=== PATIENT | male | born 1945 | race Caucasian/White ===

== ENCOUNTER 2018-12-11 06:37 | Emergency (ER) | payer MEDICARE, SELFPAY ==
[2018-12-11] VITALS (10 sets, daily range): BP systolic 108–142; BP diastolic 69–84; PULSE 77–88; RESP 16–21; TEMP 36.9; O2SAT 96–99; BMI 29.0
--- NOTE | 2018-12-11 06:49 | ED.CHESTPAIN ---
HPI - Chest Pain <Rohan Morales DO - Last Filed: 12/11/18 18:29> General Chief Complaint: Chest Pain Stated Complaint: Chest pain Time Seen by Provider: 12/11/18 06:37 Source: patient and EMS Mode of arrival: EMS Limitations: no limitations History of Present Illness HPI narrative: 73-year-old male nonsmoker with history of type 2 diabetes controlled with insulin and hyperlipidemia presents with 8/10 anterior chest pressure with radiation to both arms that started this morning while at rest. It lasted less than an hour and seemed to have no associated symptoms such as nausea, vomiting, diaphoresis or shortness of breath. He states that is symptoms improved with rest. He mentions to EMS that over the past few months he has had multiple episodes of exertional chest pain and dyspnea that all seemed to have resolved with rest. He has had any significant workup as he had been busy with personal matters. He denies any recent injury, travel or history of blood clot. He denies any leg swelling, redness or pain. MD complaint: chest pain Onset (ago): minute(s) Duration: now resolved Onset: during rest Pain location: substernal Severity: moderate Severity scale (1-10): 8 Quality: aching and heaviness Pain radiation: RUE and LUE Relieving factors: rest Exacerbating factors: nothing Treatments prior to arrival chest pain: aspirin Related Data Home Medications Medication Instructions Recorded Confirmed Atorvastatin Calcium (Lipitor) 0 PO *UK DOSE/FREQUENCY #0 06/10/06 [RX FOR BLOOD PRESSUR] #0 06/10/06 Allergies Allergy/AdvReac Type Severity Reaction Status Date / Time No Known Drug Allergies Allergy Verified 12/11/18 07:18 Review of Systems <Rohan Morales DO - Last Filed: 12/11/18 18:29> Constitutional Denies chills, Denies fever(s), Denies lethargy and Denies weakness Eyes Denies change in vision, Denies eye discharge, Denies irritation and Denies loss of vision ENT Ears, Nose, Mouth, and Throat: Denies change in voice, Denies neck pain and Denies sore throat Cardiovascular Reports chest pain, Denies irregular heart rhythm, Denies lightheadedness, Denies palpitations, Denies dyspnea, Denies dyspnea on exertion and Denies orthopnea Respiratory Denies cough, Denies dyspnea, Denies dyspnea on exertion and Denies wheezing Gastrointestinal Gastrointestinal: Denies abdominal pain, Denies change in bowel habits, Denies diarrhea, Denies nausea and Denies vomiting Genitourinary Denies hematuria, Denies flank pain, Denies urinary incontinence and Denies urinary urgency Musculoskeletal Denies neck pain Integumentary/Breasts Denies pruritus, Denies erythema, Denies rash and Denies wounds Neurologic Denies confusion, Denies loss of vision and Denies weakness Psychiatric Denies anxiety, Denies confusion, Denies depression, Denies homicidal ideation and Denies suicidal ideation Endocrine Denies palpitations Hematologic/Lymphatic Denies easy bruising Allergic/Immunologic Denies wheezing PFSH <Rohan Morales DO - Last Filed: 12/11/18 18:29> Medical History Hyperlipidemia (Acute) IDDM (insulin dependent diabetes mellitus) (Acute) Social History Smoking Status: Former smoker Social History Smoking Status: Former smoker Exam <Rohan Morales DO - Last Filed: 12/11/18 18:29> Narrative Exam Narrative: GENERAL: 73-year-old male appears stated age, resting comfortably and in no active pain HEAD: Atraumatic. Normocephalic. No temporal or scalp tenderness. EYES: Pupils equal round and reactive. Extraocular motions intact. No scleral icterus. No injection or drainage. ENT: Nose without bleeding, purulent drainage or septal hematoma. Throat without erythema, tonsillar hypertrophy or exudate. Uvula midline. Airway patent. NECK: Trachea midline. No JVD or lymphadenopathy. Supple, nontender, no meningeal signs. CARDIOVASCULAR: Regular rate and rhythm without murmurs, gallops, or rubs. RESPIRATORY: Clear to auscultation. Breath sounds equal bilaterally. No wheezes, rales, or rhonchi. GASTROINTESTINAL: Abdomen soft, non-tender, nondistended. No hepato-splenomegaly, or palpable masses. No guarding. EXTREMITIES: No clubbing, cyanosis, or edema. No joint tenderness, effusion, or edema noted. BACK: Nontender without deformity or crepitance. No flank tenderness. NEURO: AOx3. SKIN: No rash or erythema. Initial Vital Signs Initial Vital Signs: Vital Signs Temperature 98.5 F 08/03/19 06:40 Pulse Rate 85 12/11/18 06:40 Respiratory Rate 16 12/11/18 06:40 Blood Pressure 142/82 H 12/11/18 06:40 Pulse Oximetry 98 12/11/18 06:40 <Jahaira Kahn DO - Last Filed: 12/11/18 12:09> Initial Vital Signs Initial Vital Signs: Vital Signs Temperature 98.5 F 12/11/18 06:40 Pulse Rate 85 12/11/18 06:40 Respiratory Rate 16 12/11/18 06:40 Blood Pressure 142/82 H 12/11/18 06:40 Pulse Oximetry 98 12/11/18 06:40 Course <Rohan Morales DO - Last Filed: 12/11/18 18:29> Orders Ordered: Discontinued Medications Heparin Sodium (Porcine) (Heparin) 5,000 unit IV NOW ONE Stop: 12/11/18 08:46 Last Admin: 12/11/18 09:03 Dose: 5,000 unit Sodium Chloride (Normal Saline 0.9%) 1,000 mls @ 150 mls/hr IV CONT AYDE Last Infusion: 12/11/18 10:17 Dose: 0 mls/hr Admin: 12/11/18 07:18 Dose: 150 mls/hr Heparin Sodium/Dextrose (Heparin Drip) 25,000 unit in 500 mls @ 20 mls/hr IV CONT YADE; Protocol Last Titration: 12/11/18 10:17 Dose: 0 units/hr, 0 mls/hr Admin: 12/11/18 09:03 Dose: 1,000 units/hr, 20 mls/hr Vital Signs - 8 hr 12/11/18 06:40 12/11/18 07:01 12/11/18 07:30 Temperature 98.5 F Pulse Rate 85 81 80 Respiratory Rate 16 18 18 Blood Pressure 142/82 H Blood Pressure [Left Arm] 115/74 123/84 Pulse Oximetry 98 96 12/11/18 07:39 12/11/18 08:00 12/11/18 09:00 Temperature Pulse Rate 79 82 79 Respiratory Rate 21 17 21 Blood Pressure Blood Pressure [Left Arm] 123/84 108/69 134/74 Pulse Oximetry 98 98 12/11/18 09:30 12/11/18 10:00 12/11/18 10:09 Temperature Pulse Rate 84 80 88 Respiratory Rate 18 20 20 Blood Pressure Blood Pressure [Left Arm] 134/74 126/80 Pulse Oximetry 98 97 99 12/11/18 10:20 Temperature Pulse Rate 77 Respiratory Rate 20 Blood Pressure 126/80 Blood Pressure [Left Arm] Pulse Oximetry 97 <Jahaira Kahn DO - Last Filed: 12/11/18 12:09> Orders Ordered: Discontinued Medications Heparin Sodium (Porcine) (Heparin) 5,000 unit IV NOW ONE Stop: 12/11/18 08:46 Last Admin: 12/11/18 09:03 Dose: 5,000 unit Sodium Chloride (Normal Saline 0.9%) 1,000 mls @ 150 mls/hr IV CONT AYDE Last Infusion: 12/11/18 10:17 Dose: 0 mls/hr Admin: 12/11/18 07:18 Dose: 150 mls/hr Heparin Sodium/Dextrose (Heparin Drip) 25,000 unit in 500 mls @ 20 mls/hr IV CONT AYDE; Protocol Last Titration: 12/11/18 10:17 Dose: 0 units/hr, 0 mls/hr Admin: 12/11/18 09:03 Dose: 1,000 units/hr, 20 mls/hr Consultations Consultation #1: Dr. Riggs, agrees patient needs further evaluation, probable cardiac catheterization. Please admit to hospitalist. Time: 08:40 Consultation #2: Dr. Pulido, hospitalist at [facility] recommend starting heparin drip. And happily accepted Time: 08:51 Vital Signs - 8 hr 12/11/18 06:40 12/11/18 07:01 12/11/18 07:30 Temperature 98.5 F Pulse Rate 85 81 80 Respiratory Rate 16 18 18 Blood Pressure 142/82 H Blood Pressure [Left Arm] 115/74 123/84 Pulse Oximetry 98 96 12/11/18 07:39 12/11/18 08:00 12/11/18 09:00 Temperature Pulse Rate 79 82 79 Respiratory Rate 21 17 21 Blood Pressure Blood Pressure [Left Arm] 123/84 108/69 134/74 Pulse Oximetry 98 98 12/11/18 09:30 12/11/18 10:00 12/11/18 10:09 Temperature Pulse Rate 84 80 88 Respiratory Rate 18 20 20 Blood Pressure Blood Pressure [Left Arm] 134/74 126/80 Pulse Oximetry 98 97 99 12/11/18 10:20 Temperature Pulse Rate 77 Respiratory Rate 20 Blood Pressure 126/80 Blood Pressure [Left Arm] Pulse Oximetry 97 MDM - Chest Pain <Rohan Morales DO - Last Filed: 12/11/18 18:29> Lab Data Result diagrams: 12/11/18 06:52 12/11/18 06:52 Lab Results 12/11/18 12/11/18 12/11/18 Range/Units 06:52 06:52 06:52 WBC 8.0 (4.5-11.0) X10^3/uL RBC 4.57 (4.5-5.9) X10^6/uL Hgb 14.4 (13.5-17.5) g/dL Hct 43.5 (41-53) % MCV 95.2 (80-100) fL MCH 31.6 (26-34) PG MCHC 33.2 (30-36) % RDW 14.2 (11.6-14.8) % Plt Count 200 (150-400) X10^3/uL Neut % (Auto) 59.0 (50-75) % Lymph % (Auto) 23.6 L (25-40) % [place] % (Auto) 9.9 (3-14) % Eos % (Auto) 6.8 H (2-4) % Baso % (Auto) 0.7 (0-2) % Neut # (Auto) 4700 (6706-9412) /uL Lymph # (Auto) 1900 (3353-8688) /uL [place] # (Auto) 800 (0-900) /uL Eos # (Auto) 500 H (0-450) /uL Baso # (Auto) 100 (0-100) /uL PT (10.1-12.7) SECONDS INR (0.9-1.3) APTT (26.4-36.2) SECONDS Sodium 140 (137-145) mmol/L Potassium 4.4 (3.4-5.1) mmol/L Chloride 104 (98-107) mmol/L Carbon Dioxide 26 (22-32) mmol/L BUN 27 H (9-20) mg/dL Creatinine 1.10 (0.66-1.25) mg/dL Estimated GFR > 60.0 (>60) mL/min BUN/Creatinine Ratio 24.5 H (6-22) Glucose 120 H (80-110) mg/dL Calcium 9.6 (8.4-10.2) mg/dL Total Bilirubin 0.9 (0.2-1.3) mg/dL AST 29 (17-59) IU/L ALT 29 (21-72) IU/L Alkaline Phosphatase 87 (38-126) U/L Total Creatine Kinase 158 (55-170) U/L CK-MB (CK-2) 2.91 H (<2.37) ng/mL CK-MB (CK-2) Rel Index 1.8 (1.5-5.0) % Troponin I 0.029 (0.01-0.034) ng/mL B-Natriuretic Peptide < 100 (<100) Total Protein 8.0 (6.3-8.2) g/dL Albumin 4.5 (3.5-5.0) g/dL Globulin 3.5 (1.7-4.1) g/dL Albumin/Globulin Ratio 1.3 (1.0-2.8) Lipase 83 (23-300) U/L 12/11/18 12/11/18 12/11/18 Range/Units 06:52 06:52 09:05 WBC (4.5-11.0) X10^3/uL RBC (4.5-5.9) X10^6/uL Hgb (13.5-17.5) g/dL Hct (41-53) % MCV (80-100) fL MCH (26-34) PG MCHC (30-36) % RDW (11.6-14.8) % Plt Count (150-400) X10^3/uL Neut % (Auto) (50-75) % Lymph % (Auto) (25-40) % [place] % (Auto) (3-14) % Eos % (Auto) (2-4) % Baso % (Auto) (0-2) % Neut # (Auto) (5051-9239) /uL Lymph # (Auto) (1830-2249) /uL [place] # (Auto) (0-900) /uL Eos # (Auto) (0-450) /uL Baso # (Auto) (0-100) /uL PT 11.8 (10.1-12.7) SECONDS INR 1.0 (0.9-1.3) APTT 26 L (26.4-36.2) SECONDS Sodium (137-145) mmol/L Potassium (3.4-5.1) mmol/L Chloride (98-107) mmol/L Carbon Dioxide (22-32) mmol/L BUN (9-20) mg/dL Creatinine (0.66-1.25) mg/dL Estimated GFR (>60) mL/min BUN/Creatinine Ratio (6-22) Glucose (80-110) mg/dL Calcium (8.4-10.2) mg/dL Total Bilirubin (0.2-1.3) mg/dL AST (17-59) IU/L ALT (21-72) IU/L Alkaline Phosphatase (38-126) U/L Total Creatine Kinase (55-170) U/L CK-MB (CK-2) (<2.37) ng/mL CK-MB (CK-2) Rel Index (1.5-5.0) % Troponin I 0.090 H (0.01-0.034) ng/mL B-Natriuretic Peptide (<100) Total Protein (6.3-8.2) g/dL Albumin (3.5-5.0) g/dL Globulin (1.7-4.1) g/dL Albumin/Globulin Ratio (1.0-2.8) Lipase (23-300) U/L Urine Dip Bedside Urine Glucose Negative Bedside Urine Bilirubin - Negative Bedside Urine Ketone - Negative Urine Specific [place] 1.015 Bedside Urine Occult Blood - Negative Bedside Urine pH 5.5 Bedside Urine Protein - Negative Bedside Urine Urobilinogen - Negative Bedside Urine Nitrite - Negative Bedside Urine Leukocytes - Negative Esterase <Jahaira Kahn, DO - Last Filed: 12/11/18 12:09> Lab Data Attestation: I reviewed the patient's lab results. Lab Results 12/11/18 12/11/18 12/11/18 Range/Units 06:52 06:52 06:52 WBC 8.0 (4.5-11.0) X10^3/uL RBC 4.57 (4.5-5.9) X10^6/uL Hgb 14.4 (13.5-17.5) g/dL Hct 43.5 (41-53) % MCV 95.2 (80-100) fL MCH 31.6 (26-34) PG MCHC 33.2 (30-36) % RDW 14.2 (11.6-14.8) % Plt Count 200 (150-400) X10^3/uL Neut % (Auto) 59.0 (50-75) % Lymph % (Auto) 23.6 L (25-40) % [place] % (Auto) 9.9 (3-14) % Eos % (Auto) 6.8 H (2-4) % Baso % (Auto) 0.7 (0-2) % Neut # (Auto) 4700 (2983-4102) /uL Lymph # (Auto) 1900 (4010-0877) /uL [place] # (Auto) 800 (0-900) /uL Eos # (Auto) 500 H (0-450) /uL Baso # (Auto) 100 (0-100) /uL PT (10.1-12.7) SECONDS INR (0.9-1.3) APTT (26.4-36.2) SECONDS Sodium 140 (137-145) mmol/L Potassium 4.4 (3.4-5.1) mmol/L Chloride 104 (98-107) mmol/L Carbon Dioxide 26 (22-32) mmol/L BUN 27 H (9-20) mg/dL Creatinine 1.10 (0.66-1.25) mg/dL Estimated GFR > 60.0 (>60) mL/min BUN/Creatinine Ratio 24.5 H (6-22) Glucose 120 H (80-110) mg/dL Calcium 9.6 (8.4-10.2) mg/dL Total Bilirubin 0.9 (0.2-1.3) mg/dL AST 29 (17-59) IU/L ALT 29 (21-72) IU/L Alkaline Phosphatase 87 (38-126) U/L Total Creatine Kinase 158 (55-170) U/L CK-MB (CK-2) 2.91 H (<2.37) ng/mL CK-MB (CK-2) Rel Index 1.8 (1.5-5.0) % Troponin I 0.029 (0.01-0.034) ng/mL B-Natriuretic Peptide < 100 (<100) Total Protein 8.0 (6.3-8.2) g/dL Albumin 4.5 (3.5-5.0) g/dL Globulin 3.5 (1.7-4.1) g/dL Albumin/Globulin Ratio 1.3 (1.0-2.8) Lipase 83 (23-300) U/L 12/11/18 12/11/18 12/11/18 Range/Units 06:52 06:52 09:05 WBC (4.5-11.0) X10^3/uL RBC (4.5-5.9) X10^6/uL Hgb (13.5-17.5) g/dL Hct (41-53) % MCV (80-100) fL MCH (26-34) PG MCHC (30-36) % RDW (11.6-14.8) % Plt Count (150-400) X10^3/uL Neut % (Auto) (50-75) % Lymph % (Auto) (25-40) % [place] % (Auto) (3-14) % Eos % (Auto) (2-4) % Baso % (Auto) (0-2) % Neut # (Auto) (5507-1849) /uL Lymph # (Auto) (5642-1209) /uL [place] # (Auto) (0-900) /uL Eos # (Auto) (0-450) /uL Baso # (Auto) (0-100) /uL PT 11.8 (10.1-12.7) SECONDS INR 1.0 (0.9-1.3) APTT 26 L (26.4-36.2) SECONDS Sodium (137-145) mmol/L Potassium (3.4-5.1) mmol/L Chloride (98-107) mmol/L Carbon Dioxide (22-32) mmol/L BUN (9-20) mg/dL Creatinine (0.66-1.25) mg/dL Estimated GFR (>60) mL/min BUN/Creatinine Ratio (6-22) Glucose (80-110) mg/dL Calcium (8.4-10.2) mg/dL Total Bilirubin (0.2-1.3) mg/dL AST (17-59) IU/L ALT (21-72) IU/L Alkaline Phosphatase (38-126) U/L Total Creatine Kinase (55-170) U/L CK-MB (CK-2) (<2.37) ng/mL CK-MB (CK-2) Rel Index (1.5-5.0) % Troponin I 0.090 H (0.01-0.034) ng/mL B-Natriuretic Peptide (<100) Total Protein (6.3-8.2) g/dL Albumin (3.5-5.0) g/dL Globulin (1.7-4.1) g/dL Albumin/Globulin Ratio (1.0-2.8) Lipase (23-300) U/L Urine Dip Bedside Urine Glucose Negative Bedside Urine Bilirubin - Negative Bedside Urine Ketone - Negative Urine Specific [place] 1.015 Bedside Urine Occult Blood - Negative Bedside Urine pH 5.5 Bedside Urine Protein - Negative Bedside Urine Urobilinogen - Negative Bedside Urine Nitrite - Negative Bedside Urine Leukocytes - Negative Esterase Imaging Data Chest x-ray: Radiologist's impression: PROCEDURE: XR CHEST 1V INDICATIONS: CP TECHNIQUE: One view of the chest was acquired. COMPARISON: [facility], , CHEST 1 VIEW, 06/10/2006, 9:54. FINDINGS: Surgical changes and devices: None. Lungs and pleura: Interstitial prominence is seen. No focal infiltrates are seen. No pleural effusions or pneumothorax. Mediastinum: Mediastinal contours appear normal. Heart size is normal. Bones and chest wall: No suspicious bony lesions. Age-appropriate bony degenerative changes are seen. Overlying soft tissues appear unremarkable. IMPRESSION: Interstitial prominence is seen throughout. The interstitial prominence is nonspecific, yet may be related to pulmonary edema. Dictated by: Neville Cesar M.D. on 12/11/2018 at 7:06 ECG Data Attestation: I personally reviewed and interpreted this ECG as follows: Prior ECG tracings: not available for review Interpretation: EKG 1. Sinus rhythm rate [address] elevations no T-wave inversions possibly slight ST depression V4 through V6 EKG 2. Sinus rhythm rate 84 P are interval 179 ST depression previously seen now seems improved MDM Narrative Medical decision making narrative: Patient signed out to me by Dr. Morales. I have seen evaluated patient myself. Resting comfortably now. He has certainly had multiple episodes of exertional dyspnea is and today it happened at rest. Currently chest pain-free. Unfortunately [facility] not able to do cardiac stress testing over the weekend, patient will need to be transferred. Patient's 2nd troponin did increase 0.029-0.09. Cut off is 0.12 for [place], significant increase in 2 hours. Patient's symptoms are certainly concerning for cardiac event. Patient is stable for transfer. Discharge Plan Departure Patient Disposition: [facility] Clinical Impression: Angina at rest Chest pain Qualifiers: Chest pain type: unspecified Qualified Code(s): R07.9 - Chest pain, unspecified Discharge Date/Time: 12/11/18 10:23 Interventions: ED Discharge Assessment Last Done: 12/11/18 10:20 Prescriptions: No Action Atorvastatin Calcium (Lipitor) PO * DOSE/FREQUENCY Qty: 0 RF: 0 [RX FOR BLOOD PRESSUR] Qty: 0 RF: 0 Referrals: Naresh Orozco MD [Primary Care Provider] -
--- NOTE | 2018-12-11 06:54 | ED_ITS ---
HPI - Chest Pain <Rohan Morales DO - Last Filed: 12/11/18 18:29> General Chief Complaint: Chest Pain Stated Complaint: Chest pain Time Seen by Provider: 12/11/18 06:37 Source: patient and EMS Mode of arrival: EMS Limitations: no limitations History of Present Illness HPI narrative: 73-year-old male nonsmoker with history of type 2 diabetes controlled with insulin and hyperlipidemia presents with 8/10 anterior chest pressure with radiation to both arms that started this morning while at rest. It lasted less than an hour and seemed to have no associated symptoms such as nausea, vomiting, diaphoresis or shortness of breath. He states that is symptoms improved with rest. He mentions to EMS that over the past few months he has had multiple episodes of exertional chest pain and dyspnea that all seemed to have resolved with rest. He has had any significant workup as he had been busy with personal matters. He denies any recent injury, travel or history of blood clot. He denies any leg swelling, redness or pain. MD complaint: chest pain Onset (ago): minute(s) Duration: now resolved Onset: during rest Pain location: substernal Severity: moderate Severity scale (1-10): 8 Quality: aching and heaviness Pain radiation: RUE and LUE Relieving factors: rest Exacerbating factors: nothing Treatments prior to arrival chest pain: aspirin Related Data Home Medications Medication Instructions Recorded Confirmed Atorvastatin Calcium (Lipitor) 0 PO *UK DOSE/FREQUENCY #0 06/10/06 [RX FOR BLOOD PRESSUR] #0 06/10/06 Allergies Allergy/AdvReac Type Severity Reaction Status Date / Time No Known Drug Allergies Allergy Verified 12/11/18 07:18 Review of Systems <Rohan Morales DO - Last Filed: 12/11/18 18:29> Constitutional Denies chills, Denies fever(s), Denies lethargy and Denies weakness Eyes Denies change in vision, Denies eye discharge, Denies irritation and Denies loss of vision ENT Ears, Nose, Mouth, and Throat: Denies change in voice, Denies neck pain and Denies sore throat Cardiovascular Reports chest pain, Denies irregular heart rhythm, Denies lightheadedness, Denies palpitations, Denies dyspnea, Denies dyspnea on exertion and Denies orthopnea Respiratory Denies cough, Denies dyspnea, Denies dyspnea on exertion and Denies wheezing Gastrointestinal Gastrointestinal: Denies abdominal pain, Denies change in bowel habits, Denies diarrhea, Denies nausea and Denies vomiting Genitourinary Denies hematuria, Denies flank pain, Denies urinary incontinence and Denies urinary urgency Musculoskeletal Denies neck pain Integumentary/Breasts Denies pruritus, Denies erythema, Denies rash and Denies wounds Neurologic Denies confusion, Denies loss of vision and Denies weakness Psychiatric Denies anxiety, Denies confusion, Denies depression, Denies homicidal ideation and Denies suicidal ideation Endocrine Denies palpitations Hematologic/Lymphatic Denies easy bruising Allergic/Immunologic Denies wheezing PFSH <Rohan Morales DO - Last Filed: 12/11/18 18:29> Medical History Hyperlipidemia (Acute) IDDM (insulin dependent diabetes mellitus) (Acute) Social History Smoking Status: Former smoker Social History Smoking Status: Former smoker Exam <Rohan Morales DO - Last Filed: 12/11/18 18:29> Narrative Exam Narrative: GENERAL: 73-year-old male appears stated age, resting comfortably and in no active pain HEAD: Atraumatic. Normocephalic. No temporal or scalp tenderness. EYES: Pupils equal round and reactive. Extraocular motions intact. No scleral icterus. No injection or drainage. ENT: Nose without bleeding, purulent drainage or septal hematoma. Throat without erythema, tonsillar hypertrophy or exudate. Uvula midline. Airway patent. NECK: Trachea midline. No JVD or lymphadenopathy. Supple, nontender, no meningeal signs. CARDIOVASCULAR: Regular rate and rhythm without murmurs, gallops, or rubs. RESPIRATORY: Clear to auscultation. Breath sounds equal bilaterally. No wheezes, rales, or rhonchi. GASTROINTESTINAL: Abdomen soft, non-tender, nondistended. No hepato- splenomegaly, or palpable masses. No guarding. EXTREMITIES: No clubbing, cyanosis, or edema. No joint tenderness, effusion, or edema noted. BACK: Nontender without deformity or crepitance. No flank tenderness. NEURO: AOx3. SKIN: No rash or erythema. Initial Vital Signs Initial Vital Signs: Vital Signs Temperature 98.5 F 08/03/19 06:40 Pulse Rate 85 12/11/18 06:40 Respiratory Rate 16 12/11/18 06:40 Blood Pressure 142/82 H 12/11/18 06:40 Pulse Oximetry 98 12/11/18 06:40 <Jahaira Kahn DO - Last Filed: 12/11/18 12:09> Initial Vital Signs Initial Vital Signs: Vital Signs Temperature 98.5 F 12/11/18 06:40 Pulse Rate 85 12/11/18 06:40 Respiratory Rate 16 12/11/18 06:40 Blood Pressure 142/82 H 12/11/18 06:40 Pulse Oximetry 98 12/11/18 06:40 Course <Rohan Morales DO - Last Filed: 12/11/18 18:29> Orders Ordered: Discontinued Medications Heparin Sodium (Porcine) (Heparin) 5,000 unit IV NOW ONE Stop: 12/11/18 08:46 Last Admin: 12/11/18 09:03 Dose: 5,000 unit Sodium Chloride (Normal Saline 0.9%) 1,000 mls @ 150 mls/hr IV CONT AYDE Last Infusion: 12/11/18 10:17 Dose: 0 mls/hr Admin: 12/11/18 07:18 Dose: 150 mls/hr Heparin Sodium/Dextrose (Heparin Drip) 25,000 unit in 500 mls @ 20 mls/hr IV CONT AYDE; Protocol Last Titration: 12/11/18 10:17 Dose: 0 units/hr, 0 mls/hr Admin: 12/11/18 09:03 Dose: 1,000 units/hr, 20 mls/hr Vital Signs - 8 hr 12/11/18 06:40 12/11/18 07:01 12/11/18 07:30 Temperature 98.5 F Pulse Rate 85 81 80 Respiratory Rate 16 18 18 Blood Pressure 142/82 H Blood Pressure [Left Arm] 115/74 123/84 Pulse Oximetry 98 96 12/11/18 07:39 12/11/18 08:00 12/11/18 09:00 Temperature Pulse Rate 79 82 79 Respiratory Rate 21 17 21 Blood Pressure Blood Pressure [Left Arm] 123/84 108/69 134/74 Pulse Oximetry 98 98 12/11/18 09:30 12/11/18 10:00 12/11/18 10:09 Temperature Pulse Rate 84 80 88 Respiratory Rate 18 20 20 Blood Pressure Blood Pressure [Left Arm] 134/74 126/80 Pulse Oximetry 98 97 99 12/11/18 10:20 Temperature Pulse Rate 77 Respiratory Rate 20 Blood Pressure 126/80 Blood Pressure [Left Arm] Pulse Oximetry 97 <Jahaira Kahn DO - Last Filed: 12/11/18 12:09> Orders Ordered: Discontinued Medications Heparin Sodium (Porcine) (Heparin) 5,000 unit IV NOW ONE Stop: 12/11/18 08:46 Last Admin: 12/11/18 09:03 Dose: 5,000 unit Sodium Chloride (Normal Saline 0.9%) 1,000 mls @ 150 mls/hr IV CONT AYDE Last Infusion: 12/11/18 10:17 Dose: 0 mls/hr Admin: 12/11/18 07:18 Dose: 150 mls/hr Heparin Sodium/Dextrose (Heparin Drip) 25,000 unit in 500 mls @ 20 mls/hr IV CONT AYDE; Protocol Last Titration: 12/11/18 10:17 Dose: 0 units/hr, 0 mls/hr Admin: 12/11/18 09:03 Dose: 1,000 units/hr, 20 mls/hr Consultations Consultation #1: Dr. Riggs, agrees patient needs further evaluation, probable cardiac catheterization. Please admit to hospitalist. Time: 08:40 Consultation #2: Dr. Pulido, hospitalist at [facility] recommend starting heparin drip. And happily accepted Time: 08:51 Vital Signs - 8 hr 12/11/18 06:40 12/11/18 07:01 12/11/18 07:30 Temperature 98.5 F Pulse Rate 85 81 80 Respiratory Rate 16 18 18 Blood Pressure 142/82 H Blood Pressure [Left Arm] 115/74 123/84 Pulse Oximetry 98 96 12/11/18 07:39 12/11/18 08:00 12/11/18 09:00 Temperature Pulse Rate 79 82 79 Respiratory Rate 21 17 21 Blood Pressure Blood Pressure [Left Arm] 123/84 108/69 134/74 Pulse Oximetry 98 98 12/11/18 09:30 12/11/18 10:00 12/11/18 10:09 Temperature Pulse Rate 84 80 88 Respiratory Rate 18 20 20 Blood Pressure Blood Pressure [Left Arm] 134/74 126/80 Pulse Oximetry 98 97 99 12/11/18 10:20 Temperature Pulse Rate 77 Respiratory Rate 20 Blood Pressure 126/80 Blood Pressure [Left Arm] Pulse Oximetry 97 MDM - Chest Pain <Rohan Morales DO - Last Filed: 12/11/18 18:29> Lab Data Result diagrams: 12/11/18 06:52 12/11/18 06:52 Lab Results 12/11/18 12/11/18 12/11/18 Range/Units 06:52 06:52 06:52 WBC 8.0 (4.5-11.0) X10^3/uL RBC 4.57 (4.5-5.9) X10^6/uL Hgb 14.4 (13.5-17.5) g/dL Hct 43.5 (41-53) % MCV 95.2 (80-100) fL MCH 31.6 (26-34) PG MCHC 33.2 (30-36) % RDW 14.2 (11.6-14.8) % Plt Count 200 (150-400) X10^3/uL Neut % (Auto) 59.0 (50-75) % Lymph % (Auto) 23.6 L (25-40) % [place] % (Auto) 9.9 (3-14) % Eos % (Auto) 6.8 H (2-4) % Baso % (Auto) 0.7 (0-2) % Neut # (Auto) 4700 (4113-4337) /uL Lymph # (Auto) 1900 (1920-1072) /uL Finney # (Auto) 800 (0-900) /uL Eos # (Auto) 500 H (0-450) /uL Baso # (Auto) 100 (0-100) /uL PT (10.1-12.7) SECONDS INR (0.9-1.3) APTT (26.4-36.2) SECONDS Sodium 140 (137-145) mmol/L Potassium 4.4 (3.4-5.1) mmol/L Chloride 104 (98-107) mmol/L Carbon Dioxide 26 (22-32) mmol/L BUN 27 H (9-20) mg/dL Creatinine 1.10 (0.66-1.25) mg/dL Estimated GFR > 60.0 (>60) mL/min BUN/Creatinine Ratio 24.5 H (6-22) Glucose 120 H (80-110) mg/dL Calcium 9.6 (8.4-10.2) mg/dL Total Bilirubin 0.9 (0.2-1.3) mg/dL AST 29 (17-59) IU/L ALT 29 (21-72) IU/L Alkaline Phosphatase 87 (38-126) U/L Total Creatine Kinase 158 (55-170) U/L CK-MB (CK-2) 2.91 H (<2.37) ng/mL CK-MB (CK-2) Rel Index 1.8 (1.5-5.0) % Troponin I 0.029 (0.01-0.034) ng/mL B-Natriuretic Peptide < 100 (<100) Total Protein 8.0 (6.3-8.2) g/dL Albumin 4.5 (3.5-5.0) g/dL Globulin 3.5 (1.7-4.1) g/dL Albumin/Globulin Ratio 1.3 (1.0-2.8) Lipase 83 (23-300) U/L 12/11/18 12/11/18 12/11/18 Range/Units 06:52 06:52 09:05 WBC (4.5-11.0) X10^3/uL RBC (4.5-5.9) X10^6/uL Hgb (13.5-17.5) g/dL Hct (41-53) % MCV (80-100) fL MCH (26-34) PG MCHC (30-36) % RDW (11.6-14.8) % Plt Count (150-400) X10^3/uL Neut % (Auto) (50-75) % Lymph % (Auto) (25-40) % Finney % (Auto) (3-14) % Eos % (Auto) (2-4) % Baso % (Auto) (0-2) % Neut # (Auto) (0558-6828) /uL Lymph # (Auto) (6553-6695) /uL Finney # (Auto) (0-900) /uL Eos # (Auto) (0-450) /uL Baso # (Auto) (0-100) /uL PT 11.8 (10.1-12.7) SECONDS INR 1.0 (0.9-1.3) APTT 26 L (26.4-36.2) SECONDS Sodium (137-145) mmol/L Potassium (3.4-5.1) mmol/L Chloride (98-107) mmol/L Carbon Dioxide (22-32) mmol/L BUN (9-20) mg/dL Creatinine (0.66-1.25) mg/dL Estimated GFR (>60) mL/min BUN/Creatinine Ratio (6-22) Glucose (80-110) mg/dL Calcium (8.4-10.2) mg/dL Total Bilirubin (0.2-1.3) mg/dL AST (17-59) IU/L ALT (21-72) IU/L Alkaline Phosphatase (38-126) U/L Total Creatine Kinase (55-170) U/L CK-MB (CK-2) (<2.37) ng/mL CK-MB (CK-2) Rel Index (1.5-5.0) % Troponin I 0.090 H (0.01-0.034) ng/mL B-Natriuretic Peptide (<100) Total Protein (6.3-8.2) g/dL Albumin (3.5-5.0) g/dL Globulin (1.7-4.1) g/dL Albumin/Globulin Ratio (1.0-2.8) Lipase (23-300) U/L Urine Dip Bedside Urine Glucose Negative Bedside Urine Bilirubin - Negative Bedside Urine Ketone - Negative Urine Specific [place] 1.015 Bedside Urine Occult Blood - Negative Bedside Urine pH 5.5 Bedside Urine Protein - Negative Bedside Urine Urobilinogen - Negative Bedside Urine Nitrite - Negative Bedside Urine Leukocytes - Negative Esterase <Jahaira Kahn, DO - Last Filed: 12/11/18 12:09> Lab Data Attestation: I reviewed the patient's lab results. Lab Results 12/11/18 12/11/18 12/11/18 Range/Units 06:52 06:52 06:52 WBC 8.0 (4.5-11.0) X10^3/uL RBC 4.57 (4.5-5.9) X10^6/uL Hgb 14.4 (13.5-17.5) g/dL Hct 43.5 (41-53) % MCV 95.2 (80-100) fL MCH 31.6 (26-34) PG MCHC 33.2 (30-36) % RDW 14.2 (11.6-14.8) % Plt Count 200 (150-400) X10^3/uL Neut % (Auto) 59.0 (50-75) % Lymph % (Auto) 23.6 L (25-40) % Finney % (Auto) 9.9 (3-14) % Eos % (Auto) 6.8 H (2-4) % Baso % (Auto) 0.7 (0-2) % Neut # (Auto) 4700 (5094-6942) /uL Lymph # (Auto) 1900 (2484-3043) /uL Finney # (Auto) 800 (0-900) /uL Eos # (Auto) 500 H (0-450) /uL Baso # (Auto) 100 (0-100) /uL PT (10.1-12.7) SECONDS INR (0.9-1.3) APTT (26.4-36.2) SECONDS Sodium 140 (137-145) mmol/L Potassium 4.4 (3.4-5.1) mmol/L Chloride 104 (98-107) mmol/L Carbon Dioxide 26 (22-32) mmol/L BUN 27 H (9-20) mg/dL Creatinine 1.10 (0.66-1.25) mg/dL Estimated GFR > 60.0 (>60) mL/min BUN/Creatinine Ratio 24.5 H (6-22) Glucose 120 H (80-110) mg/dL Calcium 9.6 (8.4-10.2) mg/dL Total Bilirubin 0.9 (0.2-1.3) mg/dL AST 29 (17-59) IU/L ALT 29 (21-72) IU/L Alkaline Phosphatase 87 (38-126) U/L Total Creatine Kinase 158 (55-170) U/L CK-MB (CK-2) 2.91 H (<2.37) ng/mL CK-MB (CK-2) Rel Index 1.8 (1.5-5.0) % Troponin I 0.029 (0.01-0.034) ng/mL B-Natriuretic Peptide < 100 (<100) Total Protein 8.0 (6.3-8.2) g/dL Albumin 4.5 (3.5-5.0) g/dL Globulin 3.5 (1.7-4.1) g/dL Albumin/Globulin Ratio 1.3 (1.0-2.8) Lipase 83 (23-300) U/L 12/11/18 12/11/18 12/11/18 Range/Units 06:52 06:52 09:05 WBC (4.5-11.0) X10^3/uL RBC (4.5-5.9) X10^6/uL Hgb (13.5-17.5) g/dL Hct (41-53) % MCV (80-100) fL MCH (26-34) PG MCHC (30-36) % RDW (11.6-14.8) % Plt Count (150-400) X10^3/uL Neut % (Auto) (50-75) % Lymph % (Auto) (25-40) % Finney % (Auto) (3-14) % Eos % (Auto) (2-4) % Baso % (Auto) (0-2) % Neut # (Auto) (0829-9398) /uL Lymph # (Auto) (5193-8066) /uL Finney # (Auto) (0-900) /uL Eos # (Auto) (0-450) /uL Baso # (Auto) (0-100) /uL PT 11.8 (10.1-12.7) SECONDS INR 1.0 (0.9-1.3) APTT 26 L (26.4-36.2) SECONDS Sodium (137-145) mmol/L Potassium (3.4-5.1) mmol/L Chloride (98-107) mmol/L Carbon Dioxide (22-32) mmol/L BUN (9-20) mg/dL Creatinine (0.66-1.25) mg/dL Estimated GFR (>60) mL/min BUN/Creatinine Ratio (6-22) Glucose (80-110) mg/dL Calcium (8.4-10.2) mg/dL Total Bilirubin (0.2-1.3) mg/dL AST (17-59) IU/L ALT (21-72) IU/L Alkaline Phosphatase (38-126) U/L Total Creatine Kinase (55-170) U/L CK-MB (CK-2) (<2.37) ng/mL CK-MB (CK-2) Rel Index (1.5-5.0) % Troponin I 0.090 H (0.01-0.034) ng/mL B-Natriuretic Peptide (<100) Total Protein (6.3-8.2) g/dL Albumin (3.5-5.0) g/dL Globulin (1.7-4.1) g/dL Albumin/Globulin Ratio (1.0-2.8) Lipase (23-300) U/L Urine Dip Bedside Urine Glucose Negative Bedside Urine Bilirubin - Negative Bedside Urine Ketone - Negative Urine Specific [place] 1.015 Bedside Urine Occult Blood - Negative Bedside Urine pH 5.5 Bedside Urine Protein - Negative Bedside Urine Urobilinogen - Negative Bedside Urine Nitrite - Negative Bedside Urine Leukocytes - Negative Esterase Imaging Data Chest x-ray: Radiologist's impression: PROCEDURE: XR CHEST 1V INDICATIONS: CP TECHNIQUE: One view of the chest was acquired. COMPARISON: [facility], CHEST 1 VIEW, 06/10/2006, 9:54. FINDINGS: Surgical changes and devices: None. Lungs and pleura: Interstitial prominence is seen. No focal infiltrates are seen. No pleural effusions or pneumothorax. Mediastinum: Mediastinal contours appear normal. Heart size is normal. Bones and chest wall: No suspicious bony lesions. Age-appropriate bony degenerative changes are seen. Overlying soft tissues appear unremarkable. IMPRESSION: Interstitial prominence is seen throughout. The interstitial pr ominence is nonspecific, yet may be related to pulmonary edema. Dictated by: Neville Cesar M.D. on 12/11/2018 at 7:06 ECG Data Attestation: I personally reviewed and interpreted this ECG as follows: Prior ECG tracings: not available for review Interpretation: EKG 1. Sinus rhythm rate [address] elevations no T-wave inversions possibly slight ST depression V4 through V6 EKG 2. Sinus rhythm rate 84 P are interval 179 ST depression previously seen now seems improved MDM Narrative Medical decision making narrative: Patient signed out to me by Dr. Morales. I have seen evaluated patient myself. Resting comfortably now. He has certainly had multiple episodes of exertional dyspnea is and today it happened at rest. Currently chest pain-free. Unfortunately [facility] not able to do cardiac stress testing over the weekend, patient will need to be transferred. Patient's 2nd troponin did increase 0.029-0.09. Cut off is 0.12 for NC, significant increase in 2 hours. Patient's symptoms are certainly concerning for cardiac event. Patient is stable for transfer. Discharge Plan Departure Patient Disposition: [facility] Clinical Impression: Angina at rest Chest pain Qualifiers: Chest pain type: unspecified Qualified Code(s): R07.9 - Chest pain, unspecified Discharge Date/Time: 12/11/18 10:23 Interventions: ED Discharge Assessment Last Done: 12/11/18 10:20 Prescriptions: No Action Atorvastatin Calcium (Lipitor) PO * DOSE/FREQUENCY Qty: 0 RF: 0 [RX FOR BLOOD PRESSUR] Qty: 0 RF: 0 Referrals: Naresh Orozco MD [Primary Care Provider] -
[2018-12-11 06:56] LABS: Add Manual Diff / Slide Review NO; Basophils Absolute Auto 100 /uL (0-100); Basophils Percent Auto 0.7 % (0-2); Eosinophils Absolute Auto 500 /uL (0-450); Eosinophils Percent Auto 6.8 % (2-4); Hematocrit 43.5 % (41-53); Hemoglobin 14.4 g/dL (13.5-17.5); Lymphocytes Absolute Auto 1900 /uL (1100-4500); Lymphocytes Percent Auto 23.6 % (25-40); Mean Corpuscular HGB Conc 33.2 % (30-36); Mean Corpuscular Hemoglobin 31.6 PG (26-34); Mean Corpuscular Volume 95.2 fL (80-100); Monocytes Absolute Auto 800 /uL (0-900); Monocytes Percent Auto 9.9 % (3-14); Neutrophils Absolute Auto 4700 /uL (1500-7000); Platelet Count 200 X10^3/uL (150-400); Red Blood Cell Count 4.57 X10^6/uL (4.5-5.9); Red Cell Distribution Width 14.2 % (11.6-14.8)
[2018-12-11 07:02] LABS: Alanine Aminotransferase 29 IU/L (21-72); Albumin 4.5 g/dL (3.5-5.0); Albumin Globulin Ratio 1.3 (1.0-2.8); Alkaline Phosphatase 87 U/L (38-126); Aspartate Aminotransferase 29 IU/L (17-59); BUN Creatinine Ratio 24.5 (6-22); Bilirubin Total 0.9 mg/dL (0.2-1.3); Blood Urea Nitrogen 27 mg/dL (9-20); Calcium 9.6 mg/dL (8.4-10.2); Carbon Dioxide 26 mmol/L (22-32); Chloride 104 mmol/L (98-107); Creatine Kinase 158 U/L (55-170); Estimated Glomerular Filt Rate > 60.0 mL/min (>60); Globulin 3.5 g/dL (1.7-4.1); Glucose 120 mg/dL (80-110); HEMOLYSIS < 15 (0-50); Lipase 83 U/L (23-300); Potassium 4.4 mmol/L (3.4-5.1); Sodium 140 mmol/L (137-145)
[2018-12-11 07:14] LABS: Troponin I 0.029 ng/mL (0.01-0.034)
[2018-12-11 07:17] LABS: CKMB % Relative Index 1.8 % (1.5-5.0); Creatine Kinase MB 2.91 ng/mL (<2.37)
[2018-12-11] MEDS: SODIUM CHLORIDE 0.9% 1,000 ML 150 ML IV (07:18)
[2018-12-11 07:25] LABS: B Type Natriuretic Peptide < 100 (<100)
[2018-12-11] MEDS: HEPARIN DRIP 25,000 UNIT/500 ML IV.SOLN 20 UNIT IV (09:03)
[2018-12-11] MEDS: HEPARIN 5,000 UNIT/ML VIAL 5000 UNIT IV (09:03)
[2018-12-11 09:23] LABS: Prothrombin Time 11.8 SECONDS (10.1-12.7)
[2018-12-11 09:28] LABS: PTT Partial Thromboplastin Tim 26 SECONDS (26.4-36.2)
--- NOTE | 2018-12-11 09:29 | PC.NURSE ---
Received room assignment as well as nurse for report: Report [phone] Kelley RN. Room 2001
== END 2018-12-11 10:23 | disposition short-term general hospital (02) ==
PROVIDERS: Emergency Medicine; Emergency Provider Emergency Medicine; PCP Family Medicine
DX: I20.8 Other forms of angina pectoris (principal); R07.9 Chest pain, unspecified
CPT/HCPCS: 36415; 71045; 80053; 81003; 82550; 82553; 83690; 83880; 84484; 85025; 85610; 85730; 93005; 96361; 96365; 96376; 99285; J1644

== ENCOUNTER → 2019-02-08 11:46 | Outpatient (CLI) | payer MEDICARE, SELFPAY ==
--- NOTE | 2019-02-08 | DI.RAD.S_ITS ---
PROCEDURE: XR CHEST 2V INDICATIONS: COUGH TECHNIQUE: 2 views of the chest were acquired. COMPARISON: [facility], CR, XR CHEST 1V, 12/11/2018, 7:02. FINDINGS: Surgical changes and devices: Sternotomy wires and surgical clips. Lungs and pleura: No acute consolidation. Scattered subsegmental atelectasis and/or scarring. Small left pleural effusion with adjacent atelectasis No pneumothorax. Technically difficult to exclude pulmonary edema in this setting therefore please correlate clinically. Mediastinum: Mediastinal contours are normal. Heart size is stable. Bones and chest wall: No suspicious bony abnormalities. Soft tissues appear unremarkable. IMPRESSION: New small left pleural effusion with adjacent atelectasis Dictated by: Lamont Ramirez M.D. on 02/08/2019 at 15:06 Approved by: Lamont Ramirez M.D. on 02/08/2019 at 15:09
== END ==
PROVIDERS: PCP Family Medicine; Visit Provider Family Medicine
DX: R05 Cough (principal); J90 Pleural effusion, not elsewhere classified; J98.11 Atelectasis; Z95.1 Presence of aortocoronary bypass graft
CPT/HCPCS: 71046

== ENCOUNTER → 2019-03-29 08:25 | Outpatient (CLI) | payer MEDICARE, SELFPAY ==
--- NOTE | 2019-03-29 | DI.US.S_ITS ---
PROCEDURE: US ABD AORTA ANEURYSM SCREEN INDICATIONS: AAA SCREEN TECHNIQUE: Real time scanning was performed of the aorta and iliac arteries, with image documentation. COMPARISON: None. FINDINGS: Aorta: Proximal aortic diameter measures 2.8 cm. Mid-aorta measures 2.3 cm. Distal aortic diameter is mildly ectatic at 2.6 x 2.1 cm in maximal axial dimension. Iliac arteries: Right common iliac artery measures 1.4 cm. Left common iliac artery measures 1.2 cm. IMPRESSION: No aneurysm found. Mild focal ectasia involves the distal third of the aorta which measures up to 2.6 cm in maximal axial dimension, slightly larger than at the middle third of the aorta which measures up to 2.3 cm. Dictated by: Bryce Ross M.D. on 03/29/2019 at 10:44 Approved by: Bryce Ross M.D. on 03/29/2019 at 10:46
== END ==
PROVIDERS: PCP Family Medicine; Visit Provider Family Medicine
DX: Z13.6 Encounter for screening for cardiovascular disorders (principal); I77.811 Abdominal aortic ectasia
CPT/HCPCS: 76706

== ENCOUNTER 2019-04-20 10:00 | Outpatient (RCR) | payer MEDICARE, SELFPAY | END 2019-04-28 09:25 | LOC: CAR 10:00 | PROVIDERS: PCP Family Medicine; Visit Provider Thoracic Surgery (Cardiothoracic Vascular Surgery) | DX: Z95.1 Presence of aortocoronary bypass graft (principal) | CPT/HCPCS: 93797; 93798 ==

== ENCOUNTER → 2019-05-19 07:47 | Outpatient (CLI) | payer MEDICARE, SELFPAY ==
--- NOTE | 2019-05-19 | DI.ECHO.S_ITS ---
[place] [facility]---------+ [facility] +---------+ : : [address] [place] [address] : : : : [id number] : : : : Phone: [phone] Echocardiogram Report + + :Name: SAROJ RIVERA Study Date: 05/19/2019 Height: 72 in : :[facility] Weight: 220 lb : : Gender: Male BSA: 2.2 m2 : :: 1945 Age: 73 yrs BP: 142/78 mmHg: :Reason For Study: Cardiomyopathy, Ischemic : :Ordering Physician: Phyllis Kramer : :Oneil Performed By: Panchito Leos : :Referring: PHYLLIS RIGGS : + + Interpretation Summary 1) Normal left ventricular size with mildly reduced systolic function (EF 45- 50%). 2) Mild global hypokinesis that is worse at the true apex. 3) No significant valvular abnormalities. 4) Mild hypertension (BP 142/78mmHg) during the study. Resting HR in the low 70s range. 5) Compared to the Echo done 12/12/2018, LVEF has improved from 40-45% to 45-50% on this study. Procedure: A two-dimensional transthoracic echocardiogram with color flow and Doppler was performed. The study quality was technically adequate. Prior echo performed on 12/12/18. The patient was in normal sinus rhythm during the exam. Left Ventricle: The left ventricle is normal in size. There is mild concentric left ventricular hypertrophy. Left ventricular systolic function is mildly reduced. The ejection fraction is estimated to be 45-50%. Mild global hypokinesis that is worse at the true apex. Right Ventricle: The right ventricle is not well visualized. Atria: The left atrium is mildly dilated. Right atrium not well visualized. The interatrial septum is intact with no evidence for an atrial septal defect. Mitral Valve: The mitral valve is normal in structure and function. There is no mitral regurgitation noted. Aortic Valve: The aortic valve is trileaflet. The aortic valve opens well. No aortic regurgitation is present. Tricuspid Valve: The tricuspid valve is normal in structure and function. There is trace tricuspid regurgitation. Pulmonary artery pressures cannot be estimated because of the lack of a measurable TR jet velocity. Pulmonic Valve: The pulmonic valve is not well visualized. There is trace pulmonic regurgitation. Great Vessels: The aortic root is borderline dilated. The ascending aorta could not be visualized. The pulmonary artery is normal size. The inferior vena cava was not well visualized. Pericardium/ Pleura There is no pericardial effusion. There is no pleural effusion. MMode/2D Measurements & Calculations LVIDd: 4.9 cm LVOT diam: 2.3 cm LVIDs: 3.8 cm Ao root diam: 3.8 cm FS: 21.6 % Aortic Jxn: 3.2 cm EPSS: 1.3 cm IVSd: 1.3 cm LVPWd: 1.3 cm LV jeter. diameter/BSA (cm/m^2): 2.2 LV sys. diameter/BSA (cm/m^2): 1.7 LA A2 area: 21.7 cm2 LA A4 area: 23.8 cm2 LA length (vol): 5.8 cm LA vol: 75.8 ml LA vol index: 34.2 ml/m2 Doppler Measurements & Calculations Ao V2 max: 108.3 cm/sec MV E max nader: 41.6 cm/sec Ao V2 mean: 73.7 cm/sec MV A max nader: 59.4 cm/sec Ao max P.7 mmHg MV E/A: 0.70 Ao mean P.5 mmHg Med Peak E' Nader: 6.6 cm/sec Ao V2 VTI: 20.4 cm E/E' med: 6.3 Lat Peak E' Nader: 9.1 cm/sec E/E' lat: 4.6 E/e' average: 5.4 MV dec time: 0.23 sec TR max nader: 233.0 cm/sec TR max P.7 mmHg PA V2 max: 81.9 cm/sec PA V2 mean: 59.5 cm/sec PA mean P.6 mmHg PA Accel Time: 0.10 sec Reading Physician:05:09 PM
== END ==
PROVIDERS: PCP Family Medicine; Visit Provider Internal Medicine Cardiovascular Disease
DX: I25.5 Ischemic cardiomyopathy (principal); Z95.1 Presence of aortocoronary bypass graft
CPT/HCPCS: 93306

== ENCOUNTER → 2019-09-29 14:54 | Outpatient (CLI) | payer MEDICARE, SELFPAY ==
--- NOTE | 2019-09-29 | DI.CT.S_ITS ---
PROCEDURE: CT CHEST WO CON INDICATIONS: Hemoptysis TECHNIQUE: Noncontrast 5 mm thick sections acquired from the pulmonary apices to the posterior costophrenic angles. 1 mm lung window, 5 mm thick coronal and sagittal and 7 mm axial MIP reformats were then acquired. For radiation dose reduction, the following was used: automated exposure control, adjustment of mA and/or kV according to patient size. COMPARISON: [facility], CR, XR CHEST 1V, 12/11/2018, 7:02. [facility], CR, XR CHEST 2V, 02/08/2019, 11:56. FINDINGS: Image quality: Excellent. Lungs and pleura: No acute air space opacities. Note is made of what appears to be centrilobular emphysema, best seen at the upper lobes, and also fibrotic change along the subpleural lung parenchyma of the upper and lower lobes, chronic in appearance. Mild cylindrical traction bronchiectasis is present, but no endobronchial mass is found. No pleural effusions or pneumothorax. Central and peripheral airways are patent and normal in caliber. No pulmonary mass lesion suggestive of malignancy is identified. Mediastinum: Heart size is normal. No pericardial effusion. No mediastinal adenopathy by size criteria. Thoracic aorta and central pulmonary arteries are normal in size. Esophagus is normal in caliber. No hiatal hernia. Bones and chest wall: No suspicious bony lesions. No vertebral body compression fractures. No axillary or supraclavicular adenopathy by size criteria. Thyroid gland is not well-seen at its upper third but appears normal at the middle and lower thirds bilaterally.. Abdomen: Visualized upper abdominal solid organs and bowel loops appear normal in the absence of contrast. IMPRESSION: Chronic lung disease, with what appears to be a combination of centrilobular emphysema and interstitial lung disease with chronic mild to moderate pulmonary fibrosis. Mild traction bronchiectasis is present. A lung malignancy is not found. Chronic bronchitis appears superimposed in this patient, given the presence of mild peribronchial soft tissue prominence. Dictated by: Bryce Ross M.D. on 09/29/2019 at 15:24 Approved by: Bryce Ross M.D. on 09/29/2019 at 15:28
== END ==
PROVIDERS: PCP Family Medicine; Referring Provider Family Medicine; Visit Provider Family Medicine
DX: R04.2 Hemoptysis (principal); J98.4 Other disorders of lung; J47.9 Bronchiectasis, uncomplicated
CPT/HCPCS: 71250

== ENCOUNTER → 2020-08-08 09:53 | Outpatient (CLI) | payer MEDICARE, SELFPAY ==
[2020-08-08] MEDS: COVID-19 VACC #1, MRNA(MOD) 100 MCG/0.5 ML VIAL IM (10:01)
== END ==
PROVIDERS: PCP Family Medicine; Visit Provider Internal Medicine
DX: Z23 Encounter for immunization (principal)
CPT/HCPCS: 0011A; 91301

== ENCOUNTER → 2020-09-05 09:34 | Outpatient (CLI) | payer MEDICARE, SELFPAY ==
[2020-09-05] MEDS: COVID-19 VACC #2, MRNA(MOD) 100 MCG/0.5 ML VIAL IM (09:41)
== END ==
PROVIDERS: PCP Family Medicine; Visit Provider Internal Medicine
DX: Z23 Encounter for immunization (principal)
CPT/HCPCS: 0012A; 91301

== ENCOUNTER → 2021-04-24 15:50 | Outpatient (CLI) | payer MEDICARE, SELFPAY ==
--- NOTE | 2021-04-24 15:53 | DI.ECHO.S_ITS ---
[facility]---------+ [facility] +---------+ : : [address] : [address] : : : : [id number] : : : : Phone: [phone]---------+ Echocardiogram Report + + :Name: SAROJ RIVERA Study Date: 04/24/2021 Height: 73 in : :[facility] ReadingLocation: Weight: 220 lb : : Gender: Male BSA: 2.2 m2 : :: 1945 Age: 75 yrs BP: 145/86 mmHg: :Reason For Study: AOROTOCORONARY BYPASS GRAFT : :Ordering Physician: NISREEN, : :PHYLLIS Performed By: Tri Scott : :Referring: PHYLLIS RIGGS : + + Interpretation Summary 1) Normal left ventricular size with mildly reduced systolic function (EF 45- 50%). 2) Mild global hypokinesis that is worse at the true apex. 3) The right ventricle is normal in size and function. 4) There is mild aortic regurgitation. 5) Compared to the Echo done 05/19/2019, no significant change. Procedure: A two-dimensional transthoracic echocardiogram with color flow and Doppler was performed. The study quality was technically difficult. Comparison is made with the echocardiogram of 05/19/2019. The patient was in sinus rhythm with heart rates between 61-71 bpm during the exam. Left Ventricle: The left ventricle is normal in size and wall thickness. The ejection fraction is estimated to be 45-50%. Mild global hypokinesis that is worse at the true apex. Right Ventricle: The right ventricle is normal in size and function. Atria: The left atrium is mildly dilated. Right atrial size is normal. There is no Doppler evidence for an interatrial shunt. Mitral Valve: The mitral valve is normal in structure and function. There is mild mitral regurgitation. Aortic Valve: The aortic valve is trileaflet. The aortic valve opens well. There is no aortic valve stenosis. There is mild aortic regurgitation. Tricuspid Valve: The tricuspid valve is normal in structure and function. There is mild tricuspid regurgitation. The right ventricular systolic pressure is estimated to be at least 35 mmHg based on an estimated right atrial pressure of 3 mm Hg. Pulmonic Valve: The pulmonic valve is not well seen, but is grossly normal. There is mild pulmonic regurgitation. Great Vessels: The aortic root is normal size. The ascending aorta is at the upper limits of normal in size. The IVC is of normal diameter and collapses greater than 50% with a sniff. This suggests a low right atrial pressure of 3 mm Hg. Pericardium/ Pleura There is no pericardial effusion. There is no pleural effusion. MMode/2D Measurements & Calculations LVIDd: 5.3 cm LVOT diam: 2.1 cm LVIDs: 3.9 cm Ao root diam: 3.9 cm FS: 25.1 % asc Aorta Diam: 3.4 cm IVSd: 1.1 cm Ao Arch Diam (Prox Trans): 3.7 cm LVPWd: 0.92 cm LV jeter. diameter/BSA (cm/m^2): 2.3 LV sys. diameter/BSA (cm/m^2): 1.8 LA A2 area: 22.6 cm2 RA long axis: 6.7 cm LA A4 area: 22.8 cm2 RA area: 22.3 cm2 LA length (vol): 5.6 cm RA vol: 63.1 ml LA vol: 78.1 ml RA : 28.2 ml/m2 LA vol index: 34.9 ml/m2 IVC diam: 1.3 cm RVD1 (basal): 4.0 cm TAPSE: 1.6 cm Doppler Measurements & Calculations Ao V2 max: 112.9 cm/sec LVOT Max Nader: 86.4 cm/sec Ao V2 mean: 79.5 cm/sec LV V1 max P.0 mmHg Ao max P.1 mmHg LV V1 VTI: 18.0 cm Ao mean P.8 mmHg POLLY(I,D): 2.8 cm2 Ao V2 VTI: 22.7 cm POLLY(V,D): 2.7 cm2 sev ratio: 0.80 POLLY indexed to BSA (cm^2/m^2): 1.3 AI P1/2t: 554.6 msec AI dec slope: 184.0 cm/sec2 MV E max nader: 67.5 cm/sec TR max nader: 282.3 cm/sec MV A max nader: 52.7 cm/sec TR max P.9 mmHg MV E/A: 1.3 PA V2 max: 106.5 cm/sec Med Peak E' Nader: 4.9 cm/sec PA V2 mean: 68.4 cm/sec E/E' med: 13.7 PA mean P.1 mmHg Lat Peak E' Nader: 10.0 cm/sec PA pr(Accel): 25.9 mmHg E/E' lat: 6.7 E/e' average: 10.2 MV dec time: 0.21 sec SV(LVOT): 64.5 ml Reading Physician:11:34 AM
== END ==
PROVIDERS: PCP Family Medicine; Referring Provider Internal Medicine Cardiovascular Disease; Visit Provider Internal Medicine Cardiovascular Disease
DX: Z95.1 Presence of aortocoronary bypass graft (principal); I08.3 Combined rheumatic disorders of mitral, aortic and tricuspid valves
CPT/HCPCS: 93306

== ENCOUNTER → 2021-05-28 07:51 | Outpatient (CLI) | payer MEDICARE, SELFPAY ==
[2021-05-28 09:05] LABS: Add Manual Diff / Slide Review NO; Basophils Absolute Auto 100 /uL (0-100); Basophils Percent Auto 1.6 % (0-2); Eosinophils Absolute Auto 400 /uL (0-450); Eosinophils Percent Auto 5.4 % (2-4); Hematocrit 37.9 % (41-53); Hemoglobin 12.8 g/dL (13.5-17.5); Lymphocytes Absolute Auto 1300 /uL (1100-4500); Lymphocytes Percent Auto 19.9 % (25-40); Mean Corpuscular HGB Conc 33.7 % (30-36); Mean Corpuscular Hemoglobin 30.5 PG (26-34); Mean Corpuscular Volume 90.3 fL (80-100); Monocytes Absolute Auto 800 /uL (0-900); Monocytes Percent Auto 12.1 % (3-14); Neutrophils Absolute Auto 4100 /uL (1500-7000); Platelet Count 240 X10^3/uL (150-400); Red Blood Cell Count 4.19 X10^6/uL (4.5-5.9); Red Cell Distribution Width 13.9 % (11.6-14.8); White Blood Cell Count 6.7 X10^3/uL (4.5-11.0)
[2021-05-28 09:29] LABS: BUN Creatinine Ratio 21.4 (6-22); Blood Urea Nitrogen 24 mg/dL (9-20); Calcium 9.8 mg/dL (8.4-10.2); Carbon Dioxide 27 mmol/L (22-32); Chloride 104 mmol/L (98-107); Estimated Glomerular Filt Rate > 60.0 mL/min (>60); Glucose 160 mg/dL (80-110); Potassium 4.8 mmol/L (3.4-5.1); Sodium 140 mmol/L (137-145); Triglycerides 284 mg/dL (35-150)
[2021-05-28 09:30] LABS: Cholesterol 141 mg/dL (140-199); HDL Cholesterol 34 mg/dL (40-60); HEMOLYSIS < 15 (0-50); LDL Cholesterol Calculated 50 mg/dL (<100)
== END ==
PROVIDERS: PCP Family Medicine; Referring Provider Internal Medicine Cardiovascular Disease; Visit Provider Internal Medicine Cardiovascular Disease
DX: E78.5 Hyperlipidemia, unspecified (principal); I25.10 Atherosclerotic heart disease of native coronary artery without angina pectoris
CPT/HCPCS: 36415; 80048; 80061; 85025

== ENCOUNTER → 2023-07-29 16:56 | Outpatient (CLI) | payer MEDICARE, SELFPAY ==
[2023-08-01 13:54] LABS: Uric Acid 5.5 mg/dL (3.5-8.5)
== END ==
PROVIDERS: PCP Nurse Practitioner Family; Visit Provider Nurse Practitioner Family
DX: M10.9 Gout, unspecified (principal)
CPT/HCPCS: 84550

== ENCOUNTER → 2023-07-30 08:04 | Outpatient (CLI) | payer MEDICARE, SELFPAY ==
[2023-07-30 09:25] LABS: Add Manual Diff / Slide Review NO; Basophils Absolute Auto 100 /uL (0-100); Basophils Percent Auto 1.5 % (0-2); Eosinophils Absolute Auto 400 /uL (0-450); Eosinophils Percent Auto 6.2 % (2-4); Hematocrit 38.1 % (41-53); Hemoglobin 12.9 g/dL (13.5-17.5); Lymphocytes Absolute Auto 1400 /uL (1100-4500); Lymphocytes Percent Auto 22.2 % (25-40); Mean Corpuscular HGB Conc 33.9 % (30-36); Mean Corpuscular Hemoglobin 31.7 PG (26-34); Mean Corpuscular Volume 93.7 fL (80-100); Monocytes Absolute Auto 700 /uL (0-900); Monocytes Percent Auto 10.8 % (3-14); Neutrophils Absolute Auto 3700 /uL (1500-7000); Neutrophils Percent Auto 59.3 % (50-75); Platelet Count 211 X10^3/uL (150-400); Red Blood Cell Count 4.07 X10^6/uL (4.5-5.9); Red Cell Distribution Width 13.3 % (11.6-14.8); White Blood Cell Count 6.3 X10^3/uL (4.5-11.0)
[2023-07-30 09:39] LABS: Hemoglobin A1C% w Est Avg Glu 7.8 % (4.0-6.0)
[2023-07-30 09:48] LABS: Alanine Aminotransferase 18 IU/L (<50); Albumin 4.1 g/dL (3.5-5.0); Albumin Globulin Ratio 1.2 (1.0-2.8); Alkaline Phosphatase 91 U/L (38-126); Aspartate Aminotransferase 25 IU/L (17-59); BUN Creatinine Ratio 13.8 (6-22); Bilirubin Total 0.7 mg/dL (0.2-1.3); Blood Urea Nitrogen 16 mg/dL (9-20); Calcium 9.2 mg/dL (8.4-10.2); Carbon Dioxide 25 mmol/L (22-32); Chloride 109 mmol/L (98-107); Cholesterol 131 mg/dL (140-199); Estimated Glomerular Filt Rate > 60 mL/min (>60); Globulin 3.4 g/dL (1.7-4.1); Glucose 102 mg/dL (80-110); HDL Cholesterol 32 mg/dL (40-60); HEMOLYSIS < 15 (0-50); LDL Cholesterol Calculated 48 mg/dL (<100); Potassium 4.8 mmol/L (3.4-5.1); Sodium 142 mmol/L (137-145); Total Protein 7.5 g/dL (6.3-8.2); Triglycerides 257 mg/dL (35-150)
[2023-07-30 10:40] LABS: Vitamin B12 189 pg/mL (239-931)
[2023-07-30 17:43] LABS: Creatinine Urine Random 167.4 mg/dL
[2023-07-30 17:45] LABS: Microalbumi Creatinin Ratio Ur 48.3 ug/mg CR (<30); Microalbumin Urine Random 8.1 mg/dL (0-1.6)
== END ==
PROVIDERS: PCP Nurse Practitioner Family; Referring Provider Nurse Practitioner Family; Visit Provider Nurse Practitioner Family
DX: I10 Essential (primary) hypertension (principal); E11.9 Type 2 diabetes mellitus without complications
CPT/HCPCS: 36415; 80053; 80061; 82043; 82570; 82607; 83036; 84443; 85025

== ENCOUNTER → 2023-11-24 08:01 | Outpatient (CLI) | payer MEDICARE, SELFPAY ==
[2023-11-24 09:06] LABS: Hematocrit 36.9 % (41-53); Hemoglobin 12.5 g/dL (13.5-17.5); Mean Corpuscular HGB Conc 33.9 % (30-36); Mean Corpuscular Hemoglobin 31.8 PG (26-34); Mean Corpuscular Volume 93.8 fL (80-100); Platelet Count 230 X10^3/uL (150-400); Red Blood Cell Count 3.94 X10^6/uL (4.5-5.9); Red Cell Distribution Width 13.3 % (11.6-14.8); White Blood Cell Count 7.3 X10^3/uL (4.5-11.0)
[2023-11-24 09:24] LABS: BUN Creatinine Ratio 22.9 (6-22); Blood Urea Nitrogen 27 mg/dL (9-20); Calcium 9.2 mg/dL (8.4-10.2); Carbon Dioxide 22 mmol/L (22-32); Chloride 108 mmol/L (98-107); Cholesterol 142 mg/dL (140-199); Estimated Glomerular Filt Rate > 60 mL/min (>60); Glucose 172 mg/dL (80-110); HDL Cholesterol 33 mg/dL (40-60); HEMOLYSIS < 15 (0-50); LDL Cholesterol Calculated 49 mg/dL (<100); Potassium 4.9 mmol/L (3.4-5.1); Sodium 137 mmol/L (137-145); Triglycerides 298 mg/dL (35-150)
== END ==
PROVIDERS: PCP Nurse Practitioner Family; Referring Provider Internal Medicine Cardiovascular Disease; Visit Provider Internal Medicine Cardiovascular Disease
DX: E78.5 Hyperlipidemia, unspecified (principal); I25.10 Atherosclerotic heart disease of native coronary artery without angina pectoris
CPT/HCPCS: 36415; 80048; 80061; 85027

== ENCOUNTER → 2023-12-30 10:19 | Outpatient (CLI) | payer MEDICARE, SELFPAY ==
[2023-12-30 12:14] LABS: Add Manual Diff / Slide Review NO; Basophils Absolute Auto 100 /uL (0-100); Eosinophils Absolute Auto 600 /uL (0-450); Eosinophils Percent Auto 6.7 % (2-4); Hematocrit 37.4 % (41-53); Hemoglobin 12.5 g/dL (13.5-17.5); Lymphocytes Absolute Auto 1100 /uL (1100-4500); Lymphocytes Percent Auto 12.6 % (25-40); Mean Corpuscular HGB Conc 33.4 % (30-36); Mean Corpuscular Hemoglobin 30.8 PG (26-34); Mean Corpuscular Volume 92.5 fL (80-100); Monocytes Absolute Auto 800 /uL (0-900); Monocytes Percent Auto 8.8 % (3-14); Neutrophils Absolute Auto 6200 /uL (1500-7000); Neutrophils Percent Auto 70.9 % (50-75); Platelet Count 238 X10^3/uL (150-400); Red Blood Cell Count 4.04 X10^6/uL (4.5-5.9); Red Cell Distribution Width 13.3 % (11.6-14.8); White Blood Cell Count 8.7 X10^3/uL (4.5-11.0)
[2023-12-30 20:09] LABS: HEMOLYSIS < 15 (0-50); Iron 82 ug/dL (49-181)
[2023-12-30 20:37] LABS: Percent Iron Saturation 26 % (20-50); Total Iron Binding Capacity 315 ug/dL (261-462); Transferrin 233 mg/dL (206-381)
[2023-12-30 21:21] LABS: Folate 5.1 ng/mL (2.76-20.0); Vitamin B12 > 1000 pg/mL (239-931)
[2023-12-30 21:23] LABS: Hemoglobin A1C% w Est Avg Glu 7.8 % (4.0-6.0)
== END ==
PROVIDERS: PCP Nurse Practitioner Family; Referring Provider Nurse Practitioner Family; Visit Provider Nurse Practitioner Family
DX: D51.9 Vitamin B12 deficiency anemia, unspecified (principal); E11.9 Type 2 diabetes mellitus without complications; D64.9 Anemia, unspecified
CPT/HCPCS: 36415; 82607; 82746; 83036; 83540; 83550; 85025

== ENCOUNTER → 2024-01-15 08:50 | Outpatient (CLI) | payer MEDICARE, SELFPAY ==
[2024-01-18 15:09] LABS: Fecal Immunochemical Test Negative (Negative)
== END ==
LOC: LAB 08:51
PROVIDERS: PCP Nurse Practitioner Family; Referring Provider Nurse Practitioner Family; Visit Provider Nurse Practitioner Family
DX: D51.9 Vitamin B12 deficiency anemia, unspecified (principal); D64.9 Anemia, unspecified
CPT/HCPCS: 82274

== ENCOUNTER → 2024-01-22 13:16 | Outpatient (CLI) | payer MEDICARE, SELFPAY ==
[2024-01-22 14:05] LABS: Influenza A - CEPHEID Flu A NEGATIVE (NEGATIVE); Influenza B - CEPHEID Flu B NEGATIVE (NEGATIVE); Respiratory Syncytial Virus Negative (Negative)
[2024-01-22 14:17] LABS: COVID-19 CEPHEID 4-PLEX PCR Negative (Negative)
== END ==
PROVIDERS: PCP Nurse Practitioner Family; Visit Provider Nurse Practitioner Family
DX: R09.89 Other specified symptoms and signs involving the circulatory and respiratory systems (principal); R06.02 Shortness of breath; R06.2 Wheezing; R05.9 Cough, unspecified
CPT/HCPCS: 0241U

== ENCOUNTER → 2024-04-21 08:36 | Outpatient (CLI) | payer MEDICARE, SELFPAY ==
[2024-04-21 09:10] LABS: Add Manual Diff / Slide Review NO; Basophils Absolute Auto 100 /uL (0-100); Basophils Percent Auto 1.1 % (0-2); Eosinophils Absolute Auto 600 /uL (0-450); Eosinophils Percent Auto 7.7 % (2-4); Hematocrit 35.8 % (41-53); Hemoglobin 12.1 g/dL (13.5-17.5); Lymphocytes Absolute Auto 1400 /uL (1100-4500); Lymphocytes Percent Auto 17.1 % (25-40); Mean Corpuscular HGB Conc 33.7 % (30-36); Mean Corpuscular Hemoglobin 30.1 PG (26-34); Mean Corpuscular Volume 89.2 fL (80-100); Monocytes Absolute Auto 900 /uL (0-900); Monocytes Percent Auto 11.2 % (3-14); Neutrophils Absolute Auto 5300 /uL (1500-7000); Neutrophils Percent Auto 62.9 % (50-75); Platelet Count 320 X10^3/uL (150-400); Red Blood Cell Count 4.01 X10^6/uL (4.5-5.9); White Blood Cell Count 8.4 X10^3/uL (4.5-11.0)
[2024-04-21 09:26] LABS: Hemoglobin A1C% w Est Avg Glu 7.6 % (4.0-6.0)
== END ==
PROVIDERS: PCP Nurse Practitioner Family; Referring Provider Nurse Practitioner Family; Visit Provider Nurse Practitioner Family
DX: I11.0 Hypertensive heart disease with heart failure (principal); I50.9 Heart failure, unspecified; E11.9 Type 2 diabetes mellitus without complications
CPT/HCPCS: 36415; 83036; 85025

== ENCOUNTER → 2024-10-06 09:05 | Outpatient (CLI) | payer MEDICARE, SELFPAY ==
[2024-10-06 10:29] LABS: Add Manual Diff / Slide Review NO; Basophils Absolute Auto 100 /uL (0-100); Basophils Percent Auto 0.9 % (0-2); Eosinophils Absolute Auto 500 /uL (0-450); Eosinophils Percent Auto 5.1 % (2-4); Hematocrit 34.9 % (41-53); Hemoglobin 11.9 g/dL (13.5-17.5); Lymphocytes Absolute Auto 1300 /uL (1100-4500); Lymphocytes Percent Auto 13.1 % (25-40); Mean Corpuscular Hemoglobin 30.5 PG (26-34); Mean Corpuscular Volume 89.6 fL (80-100); Monocytes Absolute Auto 1000 /uL (0-900); Neutrophils Absolute Auto 6800 /uL (1500-7000); Neutrophils Percent Auto 70.9 % (50-75); Platelet Count 272 X10^3/uL (150-400); Red Blood Cell Count 3.89 X10^6/uL (4.5-5.9); Red Cell Distribution Width 14.5 % (11.6-14.8); White Blood Cell Count 9.6 X10^3/uL (4.5-11.0)
[2024-10-06 10:30] LABS: Hemoglobin A1C% w Est Avg Glu 7.1 % (4.0-6.0)
[2024-10-06 11:42] LABS: BUN Creatinine Ratio 17.9 (6-22); Blood Urea Nitrogen 22 mg/dL (9-20); Calcium 9.7 mg/dL (8.4-10.2); Carbon Dioxide 21 mmol/L (22-32); Chloride 105 mmol/L (98-107); Cholesterol 125 mg/dL (140-199); Estimated Glomerular Filt Rate > 60 mL/min (>60); Glucose 135 mg/dL (70-99); HDL Cholesterol 31 mg/dL (40-60); HEMOLYSIS < 15 (0-50); LDL Cholesterol Calculated 63 mg/dL (<100); Potassium 4.9 mmol/L (3.4-5.1); Sodium 139 mmol/L (137-145); Triglycerides 154 mg/dL (35-150)
== END ==
PROVIDERS: PCP Nurse Practitioner Family; Referring Provider Nurse Practitioner Family; Visit Provider Nurse Practitioner Family
DX: I11.0 Hypertensive heart disease with heart failure (principal); I50.9 Heart failure, unspecified; E11.9 Type 2 diabetes mellitus without complications; E78.5 Hyperlipidemia, unspecified; I25.10 Atherosclerotic heart disease of native coronary artery without angina pectoris
CPT/HCPCS: 36415; 80048; 80061; 83036; 85025

== ENCOUNTER → 2025-04-12 09:50 | Outpatient (CLI) | payer MEDICARE, SELFPAY ==
[2025-04-12 10:33] LABS: Add Manual Diff / Slide Review NO; Hematocrit 36.1 % (41-53); Hemoglobin 11.8 g/dL (13.5-17.5); Lymphocytes Absolute Auto 1300 /uL (1100-4500); Mean Corpuscular HGB Conc 32.7 % (30-36); Mean Corpuscular Hemoglobin 29.0 PG (26-34); Mean Corpuscular Volume 88.8 fL (80-100); Platelet Count 348 X10^3/uL (150-400)
[2025-04-12 10:46] LABS: Hemoglobin A1C% w Est Avg Glu 6.7 % (4.0-6.0)
[2025-04-12 10:49] LABS: Blood Urea Nitrogen 15 mg/dL (9-20); Calcium 9.5 mg/dL (8.4-10.2); Carbon Dioxide 22 mmol/L (22-32); Chloride 103 mmol/L (98-107); Estimated Glomerular Filt Rate > 60 mL/min (>60); Glucose 68 mg/dL (70-99); HEMOLYSIS < 15 (0-50); Potassium 4.4 mmol/L (3.4-5.1); Sodium 141 mmol/L (137-145)
== END ==
PROVIDERS: PCP Nurse Practitioner Family; Referring Provider Nurse Practitioner Family; Visit Provider Nurse Practitioner Family
DX: E11.9 Type 2 diabetes mellitus without complications (principal); D64.9 Anemia, unspecified; Z79.4 Long term (current) use of insulin; I10 Essential (primary) hypertension
CPT/HCPCS: 36415; 80048; 83036; 85025

== ENCOUNTER → 2025-04-26 11:28 | Outpatient (CLI) | payer MEDICARE, SELFPAY ==
--- NOTE | 2025-04-26 11:29 | DI.RAD.S_ITS ---
PROCEDURE: XR CHEST 2V INDICATIONS: SOB, cough elevated WBC TECHNIQUE: 2 views of the chest were acquired. COMPARISON: None. FINDINGS: Surgical changes and devices: Sternotomy. Lungs and pleura: Chronic bilateral lung scarring. Small right basilar pleural effusion. No pneumothorax. Mediastinum: Mediastinal contours are normal. Heart size is normal. Bones and chest wall: Moderate multilevel thoracic degeneration. No suspicious bony abnormalities. Soft tissues appear unremarkable. IMPRESSION: Small right basilar pleural effusion with chronic bilateral lung scarring. Dictated by: Bonny Valiente [facility] Interpreted: Bridget Fall MD on 04/26/2025 at 12:42 Transcribed by: SERGO on 04/26/2025 at 13:00 Approved by: Bridget Fall M.D. on 04/28/2025 at 7:53
== END ==
PROVIDERS: PCP Nurse Practitioner Family; Referring Provider Nurse Practitioner Family; Visit Provider Nurse Practitioner Family
DX: J98.4 Other disorders of lung (principal); J90 Pleural effusion, not elsewhere classified; R05.9 Cough, unspecified; D72.829 Elevated white blood cell count, unspecified
CPT/HCPCS: 71046